=== PATIENT | male | born 1980 | race American Indian/Alaskan Native ===

== ENCOUNTER 2017-12-31 12:47 | Emergency (ER) | payer OTHER ==
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
[2017-12-31] MEDS ORDERED: MOTRIN PO ONE (14:25)
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
[2017-12-31 16:57] VITALS: BP 120/72
== END 2017-12-31 16:55 | disposition home or self-care (01) ==
LOC: ED 12:47
DX: M62.830 Muscle spasm of back (principal); M62.838 Other muscle spasm; M79.605 Pain in left leg; V89.2XXA Person injured in unspecified motor-vehicle accident, traffic, initial encounter; Y93.89 Activity, other specified; Y92.488 Other paved roadways as the place of occurrence of the external cause; Y99.8 Other external cause status
CPT/HCPCS: 72100; 99283

== ENCOUNTER 2019-05-13 18:14 | Emergency (ER) | payer OTHER ==
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
[2019-05-13 20:43] VITALS: BP 136/70
[2019-05-13] MEDS ORDERED: IBUPROFEN 600 MG TAB PO ONE (21:17)
[2019-05-13] MEDS ORDERED: ONDANSETRON 4 MG ODT TAB PO ONE (21:17)
[2019-05-13] MEDS ORDERED: HYDROcodone/ACETAMINOPHEN 7.5-325MG TAB PO ONE (21:17)
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
== END 2019-05-13 23:35 | disposition home or self-care (01) ==
LOC: ED 18:14
DX: S29.012A Strain of muscle and tendon of back wall of thorax, initial encounter (principal); M62.838 Other muscle spasm; Z79.899 Other long term (current) drug therapy; V49.59XA Passenger injured in collision with other motor vehicles in traffic accident, initial encounter; Y93.89 Activity, other specified; Y92.410 Unspecified street and highway as the place of occurrence of the external cause; Y99.8 Other external cause status
CPT/HCPCS: 72040; 72072; 72100; Q0162